=== PATIENT | male | born 1965 | race Caucasian/White ===

== ENCOUNTER 2022-05-18 09:30 | Day surgery (SDC) | payer OTHER ==
[~2022-05-18] VITALS: Ht 182.9 cm; Wt 101.2 kg
[2022-05-18] MEDS ORDERED: DETROL 2MG TAB2 MG PO (12:32)
[2022-05-18] MEDS ORDERED: PRILOSEC 20MG20 MG PO (12:32)
[2022-05-18] MEDS ORDERED: ZOLOFT 100MG100 MG PO (12:32)
[2022-05-18] MEDS ORDERED: COZAAR 50MG50 MG/TAB PO (12:33)
[2022-05-18] MEDS ORDERED: ZYRTEC 10MG10 MG PO (12:33)
[2022-05-18] MEDS ORDERED: FLONASE NASAL S16 GM NS (12:34)
[2022-05-18] MEDS ORDERED: MOBIC 7.5MG7.5 MG PO (12:34)
[2022-05-18] MEDS ORDERED: PRAVACHOL10 MG PO (12:35)
[2022-05-18] MEDS ORDERED: PATADAY5 ML OP (12:35)
[2022-05-18] MEDS ORDERED: PERIACTIN 4MG TA4 MG PO (12:35)
[2022-05-18] MEDS ORDERED: FISH OIL1000 MG PO (12:36)
[2022-05-18 13:30] VITALS: BP 133/77; PULSE 56; TEMP 18
[2022-05-18 13:45] VITALS: BP 141/77; PULSE 54
[2022-05-18 14:00] VITALS: BP 141/86; PULSE 55
[2022-05-18 15:44] VITALS: BP 156/80; PULSE 54; TEMP 97.6
== END 2022-05-18 14:14 ==
LOC: SDCO 09:30
DX: K64.0 First degree hemorrhoids (principal); Z86.010 Personal history of colon polyps; Z79.899 Other long term (current) drug therapy
CPT/HCPCS: J2704; J7120